=== PATIENT | male | born 1955 | race Caucasian/White ===

== ENCOUNTER 2025-03-28 19:56 | Emergency (ER) | payer MEDICARE, BC ==
[2025-03-28] MEDS: Ketorolac 15 MG/ML SDV IVPUSH ONE (21:24)
[2025-03-28] MEDS: Sodium Chloride 0.9% 10 ML Syringe FLUSH PRN (21:25)
[2025-03-28] MEDS: Diphtheria,Pertussis(Acell),Tetanus Vaccine 0.5 ML Syringe IM ONE (22:54)
[2025-03-28] MEDS: Bacitracin Oint 1 GM U/D Packet TOP ONE (22:55)
== END 2025-03-28 23:19 | disposition home or self-care (01) ==
LOC: JP.ED 19:56
DX: T20.12XA Burn of first degree of lip(s), initial encounter (principal); T22.111A Burn of first degree of right forearm, initial encounter; T24.131A Burn of first degree of right lower leg, initial encounter; Z88.2 Allergy status to sulfonamides; X08.8XXA Exposure to other specified smoke, fire and flames, initial encounter
CPT/HCPCS: 16020; 90471; 90715; 96374; 99283; J1885